=== PATIENT | female | born 1970 | race Two or more races ===

== ENCOUNTER 2024-07-22 15:13 | Emergency (ER) | payer MEDICAID, SELFPAY ==
[2024-07-22 15:15] VITALS: BP 141/83; PULSE 81; RESP 16; TEMP 36.9; O2SAT 98; BMI 43.4
--- NOTE | 2024-07-22 15:24 | EKG_ITS ---
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
--- NOTE | 2024-07-22 15:27 | PD.EDRME ---
Rapid Medical Screening Exam RME Arrival date/time: 07/22/24 15:13 54-year-old female presents emergency department today stating she has upper abdominal pain patient does report history of cholecystectomy Chief Complaint: Abdominal Pain Vital signs: Vital Signs Temperature 98.5 F 07/22/24 15:15 Pulse Rate 81 07/22/24 15:15 Respiratory Rate 16 07/22/24 15:15 Blood Pressure 141/83 H 07/22/24 15:15 Pulse Oximetry (%) 98 07/22/24 15:15 Oxygen Delivery Method Room Air 07/22/24 15:15
--- NOTE | 2024-07-22 15:50 | XR_ITS ---
Examination: CT abdomen with intravenous contrast CT pelvis with intravenous contrast 2-D coronal reconstructions 2-D sagittal reconstructions Date and time of exam:July 22, 2024 at 1734 hrs. Comparison August 27, 2018 Indications: Severe upper abdominal pain epigastric pain nausea today. CTDI: vol (mGy) 17.5 DLP: (mGycm) 1063 Technique: Multiple axial sections of the abdomen and pelvis have been obtained. 64 slice high-resolution scanner used. 3 mm axial sections have been obtained, post intravenous injection 60 cc [id number] 2-D sagittal, coronal reconstructions obtained. Low dose protocols were performed. One or more of the following dose reduction techniques were used; automated exposure control, adjustment of the mA and/or KV according to patient size, use of iterative reconstruction technique. Findings: Mild enlargement cardiac contour, mild vascular congestion Hepatomegaly 23 cm Cirrhosis, liver nodular in contour, no focal liver lesions Absent gallbladder, no biliary tract dilatation No pancreatic mass No renal or ureteral calculi, no hydronephrosis Multiple fluid distended small bowel loops with mild wall thickening Abdominal aorta is not enlarged No pericecal inflammatory change No diverticulitis Atrophic anteverted uterus with intrauterine device satisfactory position No bladder mass or bladder calculi Moderate osteopenia Impression: Significant hepatomegaly Cirrhosis, no focal liver lesions Multiple fluid distended small bowel loops with mild wall wall thickening, differential would include enteritis such as Crohn's disease, hepatic enteropathy, clinical correlation advised
[2024-07-22 16:05] LABS: Collection Type, Urine Clean Catch
[2024-07-22 16:10] LABS: Basophils % (Auto) 0 % (0-2.5); Eosinophils # (Auto) 0.1 Thou/mm3 (0.0-0.5); Eosinophils % (Auto) 1 % (0-10); Hematocrit 41.3 % (36.0-46.0); Hemoglobin 12.8 g/dL (12.0-16.0); Immature Granulocytes % (Auto) 0 % (0-0); Immature Granulocytes Auto 0.01 Thou/mm3 (0.00-0.00); Lymphocytes # (Auto) 1.1 Thou/mm3 (1.0-4.8); Lymphocytes % (Auto) 12 % (10-50); Mean Corpuscular Hemoglobin 23.1 pg (25.0-35.0); Mean Corpuscular Volume 75 fL (80-100); Monocytes # (Auto) 0.4 Thou/mm3 (0.0-0.8); Monocytes % (Auto) 5 % (0-12); Neutrophils # (Auto) 7.1 Thou/mm3 (1.8-7.7); Neutrophils % (Auto) 82 % (37-80); Nucleated Red Blood Cell % 0 /100 WBC (0); Platelet Count 232 Thou/mm3 (140-440); RDW Standard Deviation 42.4 fL (36.4-46.3); Red Blood Count 5.54 Miln/mm3 (4.00-5.20); White Blood Count 8.7 Thou/mm3 (3.6-11.0)
[2024-07-22 16:17] LABS: Bilirubin,Urine Negative (Negative); Blood,Urine Negative (Negative); Clarity,Urine Clear (Clear/Hazy); Color,Urine Lt-Yellow (Lt Yel-Yel); Glucose, Urine 4+ (Negative); Ketones,Urine Negative (Negative); Leukocyte Esterase,Urine Negative (Negative); Nitrite,Urine Negative (Negative); Protein,Urine Negative (Neg - Trace); RBC,Urine 2 /hpf (0-3); Specific Gravity,Urine 1.029 (1.001-1.035); Squamous Epithelial Cell,Urine < 1 /hpf (0-5); Urobilinogen,Urine Negative mg/dL (0.0-1.0); WBC,Urine < 1 /hpf (0-5)
[2024-07-22 16:26] LABS: Partial Thromboplastin Time 27.3 Seconds (22.0-36.0); Prothrombin Time 11.2 Seconds (9.0-12.2)
[2024-07-22 16:30] LABS: HCG Qualitative,Urine Negative
[2024-07-22] MEDS: PANTOPRAZOLE INJ 40 MG VIAL IV (16:30)
[2024-07-22] MEDS: FAMOTIDINE INJ 10 MG/ML VIAL 2 ML 20 MG IVP (16:31)
[2024-07-22] MEDS: ONDANSETRON INJ 2 MG/ML INJ 2 ML 4 MG IV (16:31)
[2024-07-22 16:36] LABS: Alanine Aminotransferase 50 U/L (10-49); Albumin, Serum 4.8 gm/dL (3.5-5.0); Albumin/Globulin Ratio 1.6 (1.2-2.2); Alkaline Phosphatase 99 U/L (46-116); Amylase 134 U/L (30-118); Anion Gap 7 (7-16); Aspartate Amino Transferase 32 U/L (0-34); BUN/Creatinine Ratio 21 Ratio (12-20); Bilirubin,Total 0.5 mg/dL (0.3-1.2); Blood Urea Nitrogen 17 mg/dL (9-23); Calcium 9.4 mg/dL (8.3-10.6); Calcium (Corrected) 9.4 mg/dL (8.5-10.1); Carbon Dioxide 28.1 mMol/L (20.0-31.0); Chloride 101 mMol/L (98-107); Creatinine (Component) 0.8 mg/dL (0.6-1.3); Estimated Creatinine Clearance 99.9 mL/min (>60); Glucose 176 mg/dL (74-106); Lipase 68 U/L (12-53); Magnesium 2.1 mg/dL (1.6-2.6); Osmolality,Calculated 277 (275-295); Potassium 3.9 mMol/L (3.4-5.1); Sodium 136 mMol/L (136-145); Total Protein 7.8 gm/dL (5.7-8.2); Troponin I < 0.002 ng/mL (0.0-0.045); eGFR > 60 See Note
--- NOTE | 2024-07-22 17:39 | EDNOTE_ITS ---
ED Abdominal Pain RME/HPI General Chief Complaint: Abdominal Pain Stated complaint: EPIGASTRIC PAIN Time seen by provider: 07/22/24 15:47 Arrival date/time: 07/22/24 15:13 RME / HPI RME / HPI narrative: 07/22/24 15:13 54-year-old female presents emergency department today stating she has upper abdominal pain patient does report history of cholecystectomy This section includes all my notes and documentations, including HPI, PE, and ED course. Shree Cantu MD HPI: 54-year-old female here with about a week history of epigastric tenderness with nausea. Had cholecystectomy in the past. Decreased oral intake due to her symptoms. No fever or chills. No urinary symptoms. No diarrhea or constipation. No other complaints. ROS: All negative except as documented in HPI. Physical Exam: General: Alert and oriented. No acute distress when remaining still. Eyes: Conjunctivae and lids clear. ENT: No nasal congestion. Neck: Supple. Heart: RRR. Lungs: No respiratory distress. Good air movement. No rhonchi, wheezing, rales. Abdomen: Soft epigastric tenderness. Normal bowel sounds. No distension. No rebound or guarding. Back: No CVA tenderness. Skin: Warm and dry. Neuro: Alert and oriented X 3. I ordered Zofran and famotidine and Protonix diagnostic tests. At 6 PM on 07/22/2024, the care of the patient was transferred to Dr. DELATORRE. Shree Cantu MD Related Data Previous Rx's ?Medication ?Instructions ?Recorded albuterol sulfate 90 mcg/actuation 2 puff inhalation Q4H PRN 04/20/18 aerosol inhaler (Proventil HFA) shortness of breath or wheezing #8.5 grams aluminum-mag hydroxide-simethicone 10 ml PO Q6H PRN indigestion #355 05/19/19 200 mg-200 mg-20 mg/5 mL oral susp mL (Maalox Advanced) omeprazole 20 mg capsule,delayed 20 mg PO QDAY #30 caps 05/19/19 release hydrocodone 5 mg-acetaminophen 325 1 tab PO BID PRN pain #8 tabs 10/18/22 mg tablet ibuprofen 800 mg tablet 800 mg PO TID PRN pain #30 tabs 10/18/22 cyclobenzaprine 5 mg tablet 5 mg PO Q8H #30 tabs 05/25/23 gabapentin 300 mg capsule 300 mg PO Q8H #30 caps 05/25/23 sucralfate 100 mg/mL oral 10 ml PO TID #200 mL 07/22/24 suspension (Carafate) Allergies Allergy/AdvReac Type Severity Reaction Status Date / Time No Known Allergies Allergy Verified 12/04/21 12:16 Course Quality Measures none Orders Category Date Time Status CT Screening NOW Care 07/22/24 15:50 Completed EKG (ED ONLY) *Do not use* NOW Care 07/22/24 15:24 Completed Saline [Insert IV] NOW Care 07/22/24 15:[address] abdomen pelvis w con Stat Exams 07/22/24 15:50 Completed EKG (ED Only) Stat Exams 07/22/24 15:24 Draft Amylase Stat Lab 07/22/24 15:54 Completed CBC Stat Lab 07/22/24 15:54 Completed Comprehensive Metabolic Panel Stat Lab 07/22/24 15:54 Completed Drug Screen,Urine Stat Lab 07/22/24 15:58 Completed HCG Qualitative,Urine Stat Lab 07/22/24 15:58 Completed Lipase Stat Lab 07/22/24 15:54 Completed Magnesium Stat Lab 07/22/24 15:54 Completed Partial Thromboplastin Time Stat Lab 07/22/24 15:54 Completed Prothrombin Time with INR Stat Lab 07/22/24 15:54 Completed Troponin I Stat Lab 07/22/24 15:54 Completed Urinalysis Stat Lab 07/22/24 15:58 Completed Famotidine Inj [Pepcid Inj] Med 07/22/24 15:50 Discontinued 20 mg IVP X1 ONE Lidocaine 2% Viscous [Xylocaine 2% Viscous] Med 07/22/24 19:34 Discontinued 15 ml PO X1 ONE Ondansetron Inj [Zofran Inj] Med 07/22/24 15:50 Discontinued 4 mg IV X1 ONE Pantoprazole Inj [Protonix Inj] Med 07/22/24 15:50 Discontinued 40 mg IV X1 ONE Sucralfate Susp [Carafate Susp] Med 07/22/24 19:34 Discontinued 1 gm PO X1 ONE mg Hyd/Al Hyd/Reed Susp [Maalox Susp] Med 07/22/24 19:34 Discontinued 30 ml PO X1 ONE Vital Signs Vital signs: Vital Signs Temperature 98.5 F 07/22/24 15:15 Pulse Rate 81 07/22/24 15:15 Respiratory Rate 16 07/22/24 15:15 Blood Pressure 141/83 H 07/22/24 15:15 Pulse Oximetry (%) 98 07/22/24 15:15 Oxygen Delivery Method Room Air 07/22/24 15:15 Abdominal Pain MDM Patient data External records reviewed:: [facility] previous records Clinical information provided by:: patient and spouse Social determinants that could affect healthcare access:: none Patient has the following chronic illnesses:: None How is presenting disease/condition affected by chronic disease/condition?: no chronic disease Evaluation data The following diagnostics were reviewed and interpreted by me:: other (specify) (Diagnostic test results pending) Lab and/or radiology exams considered but not ordered:: None Interpretation Summary: Diagnostic test results pending Medications / Prescriptions Medications or Prescriptions considered but not ordered:: None Medication administrations:: Medication Administration History Discontinued Medications Al Hydrox/Mg Hydrox/Simethicone (Mg Hyd/Al Hyd/Reed (Maalox Reg) Susp 30 Ml Udc) 30 ml PO X1 ONE Stop: 07/22/24 19:35 Last Admin: 07/22/24 20:14 Dose: 30 ml Documented By: CRISTA Famotidine (Famotidine Inj 10 Mg/Ml Vial 2 Ml) 20 mg IVP X1 ONE Stop: 07/22/24 15:51 Last Admin: 07/22/24 16:31 Dose: 20 mg Documented By: TREVA Lidocaine HCl (Lidocaine Viscous 2% 15 Ml Udc) 15 ml PO X1 ONE Stop: 07/22/24 19:35 Last Admin: 07/22/24 20:15 Dose: 15 ml Documented By: CRISTA Ondansetron HCl (Ondansetron Inj 2 Mg/Ml Inj 2 Ml) 4 mg IV X1 ONE; Protocol Stop: 07/22/24 15:51 Last Admin: 07/22/24 16:31 Dose: 4 mg Documented By: TREVA Pantoprazole Sodium (Pantoprazole Inj 40 Mg Vial) 40 mg IV X1 ONE Stop: 07/22/24 15:51 Last Admin: 07/22/24 16:30 Dose: 40 mg Documented By: TREVA Sucralfate (Sucralfate Susp 1 Gm/10 Ml Udc) 1 gm PO X1 ONE Stop: 07/22/24 19:35 Last Admin: 07/22/24 20:15 Dose: 1 gm Documented By: CB Zofran and famotidine and Protonix Consultations Consultation(s) initiated? (list below): No Diagnosis Differential diagnosis abdominal pain: acute appendicitis, calculus of kidney, constipation, diverticulitis, endometriosis, gastroenteritis, pancreatitis and small bowel obstruction Most likely diagnosis given after review of the tests above:: Diagnostic test results pending Admission Indicated Admission indicated?: not indicated Explain why admission is indicated or not indicated:: Diagnostic test results pending Admission Request Was there a request for admission?: No Disposition Plan Disposition Plan: other (specify) (Transferred care to Dr. Delatorre) Discharge Plan Plan Patient Disposition: HOME (Self Care) Prescriptions/Referrals Prescriptions/Med Rec: New sucralfate [Carafate] 100 mg/mL suspension 10 ml PO TID Qty: 200 0RF No Action albuterol sulfate [Proventil HFA] 90 mcg/actuation HFA aerosol inhaler 2 puff INH Q4H PRN (Reason: shortness of breath or wheezing) Qty: 8.5 0RF alum-mag hydroxide-simeth [Maalox Advanced] 200-200-20 mg/5 mL suspension 10 ml PO Q6H PRN (Reason: indigestion) Qty: 355 0RF omeprazole 20 mg capsule,delayed release(DR/EC) 20 mg PO QDAY Qty: 30 0RF ibuprofen 800 mg tablet 800 mg PO TID PRN (Reason: pain) Qty: 30 0RF hydrocodone-acetaminophen 5-325 mg tablet 1 tab PO BID MDD 10 PRN (Reason: pain) Qty: 8 0RF gabapentin 300 mg capsule 300 mg PO Q8H Qty: 30 0RF cyclobenzaprine 5 mg tablet 5 mg PO Q8H Qty: 30 0RF Referrals: Elian Laguna MD [Primary Care Provider] - In 1 week Problem List Clinical Impression: Gastritis, Enlarged liver Patient/Caregiver Discharge Instructions Education Materials: Nonalcoholic Fatty Liver ..., ED Gastritis (Adult) Print Language: Irish Stand Alone Forms: Zaina Award Info., Patient Portal Info Letter
[2024-07-22 17:51] LABS: Amphetamine/Methamp Scrn,U Negative (Negative); Barbiturate Screen,Urine Negative (Negative); Benzodiazepines Screen,Urine Negative (Negative); Benzoylecgonine Screen, Ur Negative (Negative); Fentanyl Screen,Urine Negative (Negative); Opiate Screen,Urine Negative (Negative); THC Screen,Urine Negative (Negative)
[2024-07-22 18:19] VITALS: BP 116/81; PULSE 75; RESP 16; TEMP 36.8; O2SAT 95
--- NOTE | 2024-07-22 19:06 | PD.EDADDENDU ---
Emergency Room Addendum Addendum Narrative: 1800: Care assumed from Dr. Cantu, the previous shift emergency physician. Past medical, surgical, social and family history reviewed. Vitals and home medications reviewed. I will assume the care of the patient at this time, pending remainder of diagnostics tests and final disposition. Please refer to the emergency department record for history and examination from initial visit.? Physical exam by me shows patient under no acute distress at this time. 1940: Patient remains clinically stable throughout the emergency department visit. Re-assessment at the time of disposition demonstrates that the patient is in no acute distress. We reviewed all the results, analysis, and treatment plans. Patient is amenable to discharge. Strict return precautions were outlined. Patient was discharged in stable condition. Diagnosis: Gastritis, Enlarged liver RADIOLOGY Procedure(s): CT abdomen pelvis w con Accession Number(s): [id number] cc: Elian Laguna MD; Shree Cantu MD; James Jones MD~ Examination: CT abdomen with intravenous contrast CT pelvis with intravenous contrast 2-D coronal reconstructions 2-D sagittal reconstructions Date and time of exam:July 22, 2024 at 1734 hrs. Comparison August 27, 2018 Indications: Severe upper abdominal pain epigastric pain nausea today. CTDI: vol (mGy) 17.5 DLP: (mGycm) 1063 Technique: Multiple axial sections of the abdomen and pelvis have been obtained. 64 slice high-resolution scanner used. 3 mm axial sections have been obtained, post intravenous injection 60 cc [id number] 2-D sagittal, coronal reconstructions obtained. Low dose protocols were performed. One or more of the following dose reduction techniques were used; automated exposure control, adjustment of the mA and/or KV according to patient size, use of iterative reconstruction technique. Findings: Mild enlargement cardiac contour, mild vascular congestion Hepatomegaly 23 cm Cirrhosis, liver nodular in contour, no focal liver lesions Absent gallbladder, no biliary tract dilatation No pancreatic mass No renal or ureteral calculi, no hydronephrosis Multiple fluid distended small bowel loops with mild wall thickening Abdominal aorta is not enlarged No pericecal inflammatory change No diverticulitis Atrophic anteverted uterus with intrauterine device satisfactory position No bladder mass or bladder calculi Moderate osteopenia Impression: Significant hepatomegaly Cirrhosis, no focal liver lesions Multiple fluid distended small bowel loops with mild wall wall thickening, differential would include enteritis such as Crohn's disease, hepatic enteropathy, clinical correlation advised Dictated By: James Jones MD
[2024-07-22 19:07] VITALS: BP 130/89; PULSE 84; RESP 18; TEMP 36.9; O2SAT 96
[2024-07-22 19:58] VITALS: BP 132/93; PULSE 74; RESP 18; TEMP 36.7; O2SAT 99
[2024-07-22] MEDS: MG HYD/AL HYD/SIME (Maalox Reg) SUSP 30 ML UDC PO (20:14)
[2024-07-22] MEDS: SUCRALFATE SUSP 1 GM/10 ML UDC PO (20:15)
[2024-07-22] MEDS: LIDOCAINE VISCOUS 2% 15 ML UDC PO (20:15)
[2024-07-22 20:25] VITALS: BP 128/86; PULSE 70; RESP 16; TEMP 36.7; O2SAT 98
== END 2024-07-22 20:26 | disposition home or self-care (01) ==
PROVIDERS: Nurse Practitioner Primary Care; Emergency Provider Emergency Medicine; PCP Family Medicine
DX: K29.70 Gastritis, unspecified, without bleeding (principal)
CPT/HCPCS: 36415; 74177; 80053; 80307; 81001; 81025; 82150; 83690; 83735; 84484; 85025; 85610; 85730; 93005; 96374; 96375; 99285; A4649; J2405; J2470; J3490; Q9967; A9270

== ENCOUNTER → 2024-11-02 | Outpatient (CLI) | payer MEDICAID, SELFPAY ==
--- NOTE | 2024-11-02 12:33 | XR_ITS ---
Examination: PA lateral chest 2 views TECHNIQUE: Upright PA lateral chest 2 views Exam date and time: November 02, 2024 1324 hours INDICATIONS: Tuberculosis screening. FINDINGS: Normal heart size Lungs are clear. Moderate osteopenia IMPRESSION: No active disease No radiographic findings of tuberculosis
== END | disposition home or self-care (01) ==
PROVIDERS: PCP Physician Assistant; Referring Provider Physician Assistant; Visit Provider Physician Assistant
DX: Z11.1 Encounter for screening for respiratory tuberculosis (principal)
CPT/HCPCS: 71046

== ENCOUNTER 2024-12-13 06:29 | Emergency (ER) | payer MEDICAID, SELFPAY ==
[2024-12-13 06:31] VITALS: BMI 41.1
[2024-12-13 06:32] VITALS: BP 149/88; PULSE 77; RESP 19; TEMP 37.1; O2SAT 96
--- NOTE | 2024-12-13 06:50 | XR_ITS ---
Examination: PA lateral chest 2 views TECHNIQUE: Upright PA and lateral chest 2 views Exam date time: December 13, 2024 0707 hours INDICATIONS: Fever coughing beginning 2 weeks ago. FINDINGS: Normal heart size Accentuation of basilar bronchovascular markings. No lobar pneumonia. Moderate osteopenia IMPRESSION: Basilar bronchitis pattern
--- NOTE | 2024-12-13 06:52 | EDNOTE_ITS ---
Upper Respiratory Inf. RME/HPI General Chief Complaint: Flu Like Symptoms Stated Complaint: MY LUNGS HURTS, FEVER, CHILL, FEEL TIRED, ABD PAIN Time Seen by Provider: 12/13/24 06:33 Arrival date/time: 12/13/24 06:29 This is a 54-year-old female that comes in with complaints of fever and chills for the past 2 weeks. Patient states she feels fatigued. Patient recently had influenza approximately a month ago. Patient also complains of dysuria. Patient states she started coughing 2 days ago as well. History of diabetes, high blood pressure. Related Data Previous Rx's ?Medication ?Instructions ?Recorded albuterol sulfate 90 mcg/actuation 2 puff inhalation Q 4H PRN 04/20/18 aerosol inhaler (Proventil HFA) shortness of breath or wheezing #8.5 grams aluminum-mag hydroxide-simethicone 10 ml PO Q6H PRN in digestion #355 05/19/19 200 mg-200 mg-20 mg/5 mL oral susp mL (Maalox Advanced) omeprazole 20 mg capsule,delayed 20 mg PO QDAY #30 cap s 05/19/19 release hydrocodone 5 mg-acetaminophen 325 1 tab PO BID PRN pa in #8 tabs 10/18/22 mg tablet ibuprofen 800 mg tablet 800 mg PO TID PRN pain #30 t abs 10/18/22 cyclobenzaprine 5 mg tablet 5 mg PO Q8H #30 tabs 05/25 gabapentin 300 mg capsule 300 mg PO Q8H #30 caps 05/25 sucralfate 100 mg/mL oral 10 ml PO TID #200 mL 4 suspension (Carafate) azithromycin 250 mg tablet See Rx Instructions PO .COM PLEX #6 12/13/24 tabs ibuprofen 800 mg tablet 800 mg PO Q6H PRN pain #10 t abs 12/13/24 promethazine-DM 6.25 mg-15 mg/5 mL 5 ml PO Q6H PRN cou gh #120 mL 12/13/24 oral syrup Allergies Allergy/AdvReac Type Severity Reaction Status Date / Time No Known Allergies Allergy Verified 12/04/21 12:16 Course Orders Category Date Time Status Bedside COVID-19 Antigen Test NOW Care 12/13/24 06:50 Active Bedside Influenza A&B Antigen Test NOW Care 12/13/24 06:50 Completed XR chest 2V Stat Exams 12/13/24 06:50 Completed HCG Qualitative,Urine Stat Lab 12/13/24 08:23 Completed Urinalysis, C/S if Indicated Stat Lab 12/13/24 08:23 Completed Vital Signs Vital signs: Vital Signs Temperature 98.8 F 12/13/24 06:32 Pulse Rate 77 12/13/24 06:32 Respiratory Rate 19 12/13/24 06:32 Blood Pressure 149/88 H 12/13/24 06:32 Pulse Oximetry (%) 96 12/13/24 06:32 Oxygen Delivery Method Room Air 12/13/24 06:32 Upper Respiratory Infection MDM Narrative MDM Narrative:: Chest x ray: FINDINGS: Normal heart size Accentuation of basilar bronchovascular markings. No lobar pneumonia. Moderate osteopenia IMPRESSION: Basilar bronchitis pattern COVID and influenza negative. Discharge Plan Plan Patient Disposition: HOME (Self Care) Patient condition on transfer: Stable Prescriptions/Referrals Prescriptions/Med Rec: New azithromycin 250 mg tablet See Rx Instructions .ROUTE .COMPLEX Qty: 6 0RF Rx Instructions: For 250 mg dose pack: take 500 mg today (day 1), then 250 mg for 4 days (days 2-5) ibuprofen 800 mg tablet 800 mg PO Q6H PRN (Reason: pain) Qty: 10 0RF promethazine-DM 6.25-15 mg/5 mL syrup 5 ml PO Q6H PRN (Reason: cough) Qty: 120 0RF No Action albuterol sulfate [Proventil HFA] 90 mcg/actuation HFA aerosol inhaler 2 puff INH Q4H PRN (Reason: shortness of breath or wheezing) Qty: 8.5 0RF alum-mag hydroxide-simeth [Maalox Advanced] 200-200-20 mg/5 mL suspension 10 ml PO Q6H PRN (Reason: indigestion) Qty: 355 0RF omeprazole 20 mg capsule,delayed release(DR/EC) 20 mg PO QDAY Qty: 30 0RF ibuprofen 800 mg tablet 800 mg PO TID PRN (Reason: pain) Qty: 30 0RF hydrocodone-acetaminophen 5-325 mg tablet 1 tab PO BID MDD 10 PRN (Reason: pain) Qty: 8 0RF sucralfate [Carafate] 100 mg/mL suspension 10 ml PO TID Qty: 200 0RF gabapentin 300 mg capsule 300 mg PO Q8H Qty: 30 0RF cyclobenzaprine 5 mg tablet 5 mg PO Q8H Qty: 30 0RF Referrals: Adriel Dobson [Primary Care Provider] - In 1 week Problem List Clinical Impression: Bronchitis, Cough Patient/Caregiver Discharge Instructions Discharge Activity: activity as tolerated Education Materials: ED Upper Resp Infec Abx Tx Additional Instructions: Erickson un tyson con kyle medico de cabecera en las proximas 24-48 horas. Regrese a la emanuel de emergencias si hay evidencia de que los signos o sintomas empeoran. Print Language: Slovenian Stand Alone Forms: Zaina Award Info., Patient Portal Info Letter PA/EMERGENCY PREPAREDNESS COORDINATOR Supervising Physician PA/EMERGENCY PREPAREDNESS COORDINATOR Supervising Physician: almaz
[2024-12-13 08:39] LABS: Collection Type, Urine Voided
[2024-12-13 08:45] LABS: Bilirubin,Urine Negative (Negative); Blood,Urine Negative (Negative); Clarity,Urine Clear (Clear/Hazy); Color,Urine Lt-Yellow (Lt Yel-Yel); Culture Indicated,Urine Not Indicated; Glucose, Urine 4+ (Negative); HCG Qualitative,Urine Negative; Ketones,Urine Negative (Negative); Leukocyte Esterase,Urine Positive (Negative); Nitrite,Urine Negative (Negative); PH,Urine 5.5 (5.0-7.0); Protein,Urine Negative (Neg - Trace); RBC,Urine 1 /hpf (0-3); Specific Gravity,Urine 1.011 (1.001-1.035); Squamous Epithelial Cell,Urine 2 /hpf (0-5); Urobilinogen,Urine Negative mg/dL (0.0-1.0); WBC,Urine 3 /hpf (0-5)
== END 2024-12-13 10:35 | disposition home or self-care (01) ==
PROVIDERS: Nurse Practitioner Family; Emergency Provider Emergency Medicine; PCP Physician Assistant
DX: J40 Bronchitis, not specified as acute or chronic (principal); E11.9 Type 2 diabetes mellitus without complications
CPT/HCPCS: 71046; 81001; 81025; 87400; 87811; 99283

== ENCOUNTER 2024-12-22 10:28 | Emergency (ER) | payer MEDICAID, SELFPAY ==
[2024-12-22 10:50] VITALS: BP 142/81; PULSE 71; RESP 16; TEMP 37; O2SAT 96; BMI 39.8
--- NOTE | 2024-12-22 11:14 | EKG_ITS ---
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
--- NOTE | 2024-12-22 11:14 | XR_ITS ---
Examination: PA lateral chest 2 views TECHNIQUE: Upright PA lateral chest 2 views Date and time: December 22, 2024 1309 hours Comparison December 13, 2024 INDICATIONS: Chest pain this week. FINDINGS: Normal heart size Mild accentuation bronchovascular markings. No lobar pneumonia. Prominent osteopenia IMPRESSION: Mild basilar bronchitis pattern
--- NOTE | 2024-12-22 11:15 | EDRME_ITS ---
Rapid Medical Screening Exam [facility] Arrival date/time: 12/22/24 10:28 This is a 54-year-old female comes to the emergency room with complaints of chest pain and shortness of breath. Patient was seen here about a week ago with similar symptoms. Patient was diagnosed with bronchitis. Patient denies fever, nausea, vomiting, diarrhea. Patient reports history of diabetes and high blood pressure. I have greeted and performed a focused initial assessment of this patient. Initial appropriate labs ordered at this time. A comprehensive ED assessment and evaluation of the patient and analysis of all test and completion of medical decision making process will be conducted by additional ED provider. Chief Complaint: Chest Pain Time Seen by Provider: 12/22/24 10:29 Vital signs: Vital Signs Temperature 98.6 F 12/22/24 10:50 Pulse Rate 71 12/22/24 10:50 Respiratory Rate 16 12/22/24 10:50 Blood Pressure 142/81 H 12/22/24 10:50 Pulse Oximetry (%) 96 12/22/24 10:50 Oxygen Delivery Method Room Air 12/22/24 10:50
[2024-12-22 12:21] LABS: Basophils % (Auto) 0 % (0-2.5); Eosinophils # (Auto) 0.1 Thou/mm3 (0.0-0.5); Eosinophils % (Auto) 2 % (0-10); Hematocrit 36.8 % (36.0-46.0); Hemoglobin 12.3 g/dL (12.0-16.0); Immature Granulocytes % (Auto) 0 % (0-0); Immature Granulocytes Auto 0.01 Thou/mm3 (0.00-0.00); Lymphocytes # (Auto) 1.5 Thou/mm3 (1.0-4.8); Lymphocytes % (Auto) 27 % (10-50); Mean Corpuscular HGB Conc 33.4 g/dl (31.0-37.0); Mean Corpuscular Volume 72 fL (80-100); Monocytes # (Auto) 0.4 Thou/mm3 (0.0-0.8); Monocytes % (Auto) 7 % (0-12); Neutrophils # (Auto) 3.6 Thou/mm3 (1.8-7.7); Neutrophils % (Auto) 63 % (37-80); Nucleated Red Blood Cell % 0 /100 WBC (0); Platelet Count 271 Thou/mm3 (140-440); RDW Standard Deviation 43.8 fL (36.4-46.3); Red Blood Count 5.12 Miln/mm3 (4.00-5.20); White Blood Count 5.6 Thou/mm3 (3.6-11.0)
[2024-12-22 12:44] LABS: Alanine Aminotransferase 24 U/L (10-49); Albumin, Serum 4.3 gm/dL (3.5-5.0); Albumin/Globulin Ratio 1.4 (1.2-2.2); Alkaline Phosphatase 71 U/L (46-116); Anion Gap 9 (7-16); Aspartate Amino Transferase 33 U/L (0-34); BUN/Creatinine Ratio 11 Ratio (12-20); Bilirubin,Total 0.7 mg/dL (0.3-1.2); Blood Urea Nitrogen 8 mg/dL (9-23); Calcium 8.7 mg/dL (8.3-10.6); Calcium (Corrected) 8.7 mg/dL (8.5-10.1); Carbon Dioxide 28.1 mMol/L (20.0-31.0); Chloride 105 mMol/L (98-107); Creatinine (Component) 0.7 mg/dL (0.6-1.3); Estimated Creatinine Clearance 108.7 mL/min (>60); Glucose 94 mg/dL (74-106); Osmolality,Calculated 281 (275-295); Potassium 3.9 mMol/L (3.4-5.1); Sodium 142 mMol/L (136-145); Total Protein 7.3 gm/dL (5.7-8.2); Troponin I < 0.002 ng/mL (0.0-0.045); eGFR > 60 See Note
[2024-12-22 12:45] LABS: B-Type Natriuretic Peptide 32 pg/mL (0-100)
[2024-12-22 15:20] VITALS: BP 143/83; PULSE 80; RESP 18; TEMP 36.7; O2SAT 98
--- NOTE | 2024-12-22 16:14 | PD.EDCHEST ---
ED Chest Pain RME/HPI General Chief Complaint: Chest Pain Stated Complaint: CHEST PAIN Time Seen by Provider: 12/22/24 10:29 Arrival date/time: 12/22/24 10:28 RME / HPI RME / HPI narrative: 12/22/24 10:28 This is a 54-year-old female comes to the emergency room with complaints of chest pain and shortness of breath. Patient was seen here about a week ago with similar symptoms. Patient was diagnosed with bronchitis. Patient denies fever, nausea, vomiting, diarrhea. Patient reports history of diabetes and high blood pressure. I have greeted and performed a focused initial assessment of this patient. Initial appropriate labs ordered at this time. A comprehensive ED assessment and evaluation of the patient and analysis of all test and completion of medical decision making process will be conducted by additional ED provider. DR. DELATORRE MAIN ED EVALUATION: 54 year old female presents to the Emergency Department with complaint of chest pain with associated mild shortness of breath. She was recently seen here for bronchitis last week and uses an inhaler at home. Denies any heart problems. No leg edema or pain. Patient denies any tobacco, alcohol, or substance use. PMHx: Hypertension, hypercholesterolemia, asthma, and diabetes type 2. Social Hx: No tobacco, alcohol, or substance use. Related Data Previous Rx's ?Medication ?Instructions ?Recorded albuterol sulfate 90 mcg/actuation 2 puff inhalation Q4H PRN 04/20/18 aerosol inhaler (Proventil HFA) shortness of breath or wheezing #8.5 grams aluminum-mag hydroxide-simethicone 10 ml PO Q6H PRN indigestion #355 05/19/19 200 mg-200 mg-20 mg/5 mL oral susp mL (Maalox Advanced) omeprazole 20 mg capsule,delayed 20 mg PO QDAY #30 caps 05/19/19 release hydrocodone 5 mg-acetaminophen 325 1 tab PO BID PRN pain #8 tabs 10/18/22 mg tablet ibuprofen 800 mg tablet 800 mg PO TID PRN pain #30 tabs 10/18/22 cyclobenzaprine 5 mg tablet 5 mg PO Q8H #30 tabs 05/25/23 gabapentin 300 mg capsule 300 mg PO Q8H #30 caps 05/25/23 sucralfate 100 mg/mL oral 10 ml PO TID #200 mL 07/22/24 suspension (Carafate) azithromycin 250 mg tablet See Rx Instructions PO .COMPLEX #6 12/13/24 tabs ibuprofen 800 mg tablet 800 mg PO Q6H PRN pain #10 tabs 12/13/24 promethazine-DM 6.25 mg-15 mg/5 mL 5 ml PO Q6H PRN cough #120 mL 12/13/24 oral syrup doxycycline monohydrate 100 mg 100 mg PO BID #14 caps 12/22/24 capsule Allergies Allergy/AdvReac Type Severity Reaction Status Date / Time No Known Allergies Allergy Verified 12/22/24 10:30 Review of Systems Review of Systems Systems Reviewed: All systems reviewed, normal except as documented Past Medical History Past Medical History CARDIAC: Positive Cardiac Disorders, Hypercholesterolemia and Hypertension RESPIRATORY: Positive Asthma and Bronchitis GASTROINTESTINAL: Positive Gastrointestinal Disorders and Obesity REPRODUCTIVE: Positive Previous Pregnancies ENDOCRINE: Positive Endocrine Disorders and Diabetes Mellitus Type 2 Surgical History SURGICAL: Positive Abdominal Surgery and Section Social History SMOKING STATUS: Never smoker SUBSTANCE USE: does not use ALCOHOL: Never ED Exam Narrative Physical exam: GENERAL APPEARANCE: alert and oriented x 4, well-developed, well-nourished, no acute distress VITALS: All vitals were reviewed and the pulse ox is 98% on room air, which is normal according to my interpretation. HEENT: Normocephalic, atraumatic; pupils equal, round, reactive to light; EOMI; mucous membranes pink, moist; oropharynx clear NECK: Supple LUNGS: mild coarse sounds; no wheezes, no rales, no rhonchi HEART: Regular rate, regular rhythm; normal S1, S2; no murmurs ABDOMEN: non distended; normal BS; soft, no tenderness, no guarding, no rebound; no masses, no organomegaly, no hernia BACK: no CVA tenderness EXTREMITIES: atraumatic; no edema NEUROLOGIC: awake; alert and oriented x4; cranial nerves II-XII grossly intact; no focal sensory or motor deficits PSYCHIATRIC: appropriate mood and affect SKIN: warm, dry, normal color; no rashes Course Quality Measures none Orders Category Date Time Status EKG (ED ONLY) *Do not use* NOW Care 12/22/24 11:14 Completed EKG (ED Only) Stat Exams 12/22/24 11:14 Draft XR chest 2V Stat Exams 12/22/24 11:14 Completed BNP [B-Type Natriuretic Peptide] Stat Lab 12/22/24 11:50 Completed CBC Stat Lab 12/22/24 11:50 Completed Comprehensive Metabolic Panel Stat Lab 12/22/24 11:50 Completed Troponin I Stat Lab 12/22/24 11:50 Completed Troponin I Stat Lab 12/22/24 16:15 Ordered Dexamethasone Inj [Decadron Inj] Med 12/22/24 16:15 Discontinued 4 mg PO X1 ONE Doxycycline [Vibramycin] Med 12/22/24 16:15 Discontinued 100 mg PO X1 ONE Vital Signs Vital signs: Vital Signs Temperature 98.6 F 12/22/24 10:50 Pulse Rate 71 12/22/24 10:50 Respiratory Rate 16 12/22/24 10:50 Blood Pressure 142/81 H 12/22/24 10:50 Pulse Oximetry (%) 96 12/22/24 10:50 Oxygen Delivery Method Room Air 12/22/24 10:50 Chest Pain MDM Narrative MDM Narrative:: I, Edna Gamble am scribing for and in the presence of Dr. Delatorre. Patient data External records reviewed:: [facility] previous records (Reviewed last ED visit dated 12/13/24, discharged with the following: Bronchitis) Clinical information provided by:: patient Social determinants that could affect healthcare access:: none Patient has the following chronic illnesses:: Hypertension, hypercholesterolemia, asthma, and diabetes type 2. How is presenting disease/condition affected by chronic disease/condition?: exacerbated by Evaluation data The following diagnostics were reviewed and interpreted by me:: lab results, radiology exam(s) and EKG tracing(s) (EKG#1: EKG at 1119 hours. Interpreted by me: sinus rhythm, rate 70, no acute ischemic changes) Lab and/or radiology exams considered but not ordered:: none Interpretation Summary: Procedure(s): XR chest 2V Accession Number(s): [id number] cc: James Jones MD; NO PRIMARY/FAMILY,PHYSICIAN; Betty Medina NP~ Examination: PA lateral chest 2 views TECHNIQUE: Upright PA lateral chest 2 views Date and time: December 22, 2024 1309 hours Comparison December 13, 2024 INDICATIONS: Chest pain this week. FINDINGS: Normal heart size Mild accentuation bronchovascular markings. No lobar pneumonia. Prominent osteopenia IMPRESSION: Mild basilar bronchitis pattern Dictated By: James Jones MD Medications / Prescriptions Medications or Prescriptions considered but not ordered:: none Medication administrations:: Medication Administration History Discontinued Medications Dexamethasone Sodium Phosphate (Dexamethasone Sod Phos Inj 4 Mg/Ml Vial) 4 mg PO X1 ONE; Protocol Stop: 12/22/24 16:16 Doxycycline Hyclate (Doxycycline 100 Mg Tablet) 100 mg PO X1 ONE Stop: 12/22/24 16:16 see above Consultations Consultation(s) initiated? (list below): No Diagnosis Chest Pain Differential Diagnosis: atypical chest pain, costochondritis, chest pain and other (bronchitis) Most likely diagnosis given after review of the tests above:: Bronchitis Admission Indicated Admission indicated?: not indicated Admission Request Was there a request for admission?: No Disposition Plan Disposition Plan: Discharge Discharge Attestation Discharge Attestation: The patient and all family members were given an opportunity to ask questions and understood the discharge instructions. Discharge instructions specifically effects, indications for sooner follow up or return to the emergency department, and the expected course of current diagnosis. Patient condition: Stable Discharge Plan Plan Patient Disposition: HOME (Self Care) Prescriptions/Referrals Prescriptions/Med Rec: New doxycycline monohydrate 100 mg capsule 100 mg PO BID Qty: 14 0RF No Action albuterol sulfate [Proventil HFA] 90 mcg/actuation HFA aerosol inhaler 2 puff INH Q4H PRN (Reason: shortness of breath or wheezing) Qty: 8.5 0RF alum-mag hydroxide-simeth [Maalox Advanced] 200-200-20 mg/5 mL suspension 10 ml PO Q6H PRN (Reason: indigestion) Qty: 355 0RF omeprazole 20 mg capsule,delayed release(DR/EC) 20 mg PO QDAY Qty: 30 0RF ibuprofen 800 mg tablet 800 mg PO TID PRN (Reason: pain) Qty: 30 0RF hydrocodone-acetaminophen 5-325 mg tablet 1 tab PO BID MDD 10 PRN (Reason: pain) Qty: 8 0RF sucralfate [Carafate] 100 mg/mL suspension 10 ml PO TID Qty: 200 0RF gabapentin 300 mg capsule 300 mg PO Q8H Qty: 30 0RF cyclobenzaprine 5 mg tablet 5 mg PO Q8H Qty: 30 0RF azithromycin 250 mg tablet See Rx Instructions .ROUTE .COMPLEX Qty: 6 0RF Rx Instructions: For 250 mg dose pack: take 500 mg today (day 1), then 250 mg for 4 days (days 2-5) ibuprofen 800 mg tablet 800 mg PO Q6H PRN (Reason: pain) Qty: 10 0RF promethazine-DM 6.25-15 mg/5 mL syrup 5 ml PO Q6H PRN (Reason: cough) Qty: 120 0RF Referrals: No Primary/Family,Physician [Primary Care Provider] - In 1 week Problem List Clinical Impression: Bronchitis Patient/Caregiver Discharge Instructions Education Materials: ED Upper Resp Infec Abx Tx Print Language: Citizen [place] Stand Alone Forms: Zaina Award Info., Patient Portal Info Letter
[2024-12-22] MEDS: DOXYCYCLINE 100 MG TABLET PO (16:57)
[2024-12-22] MEDS: DEXAMETHASONE SOD PHOS INJ 4 MG/ML VIAL PO (16:57)
[2024-12-22 17:01] VITALS: RESP 18; TEMP 36.7; O2SAT 98
[2024-12-22 17:29] LABS: Troponin I < 0.002 ng/mL (0.0-0.045)
== END 2024-12-22 17:02 | disposition home or self-care (01) ==
PROVIDERS: Nurse Practitioner Family; Emergency Provider Emergency Medicine
DX: J40 Bronchitis, not specified as acute or chronic (principal); E11.9 Type 2 diabetes mellitus without complications; I10 Essential (primary) hypertension; E78.00 Pure hypercholesterolemia, unspecified
CPT/HCPCS: 36415; 71046; 80053; 83880; 84484; 85025; 93005; 99283; J1100; A9270

== ENCOUNTER 2025-01-27 07:40 | Emergency (ER) | payer MEDICAID, SELFPAY ==
[2025-01-27 07:41] VITALS: BMI 39.9
--- NOTE | 2025-01-27 07:56 | XR_ITS ---
Examination: CT brain head without contrast. 2-D sagittal coronal reconstructions Date and time of exam:January 27, 2025 0823 hours INDICATIONS: Onset left-sided head pain blurred vision beginning 4 days ago CTDI: vol (mGy):57.8 DLP: (mGycm):1133 Technique: Multiple CT axial sections of the brain have been obtained, 5 mm slice thickness. Contrast has not been administered. 2-D sagittal, coronal reconstructions have been obtained Low dose protocols were performed. One or more of the following dose reduction techniques were used; automated exposure control, adjustment of the mA and/or KV according to patient size, use of iterative reconstruction technique. Findings: No significant ventricular enlargement. Intra-axial or extra-axial hemorrhage density is not seen. No mass effect or midline shift Basal cisterns are not remarkable. Fourth ventricle is midline. Cranial vault intact. Impression: Negative for acute hemorrhage, mass effect or midline shift As clinically warranted, brain MRI follow-up would best assess for demyelinating disease, acute ischemic change
[2025-01-27 07:59] VITALS: BP 153/92; PULSE 76; RESP 16; TEMP 36.8; O2SAT 97
[2025-01-27 08:21] LABS: Basophils % (Auto) 1 % (0-2.5); Eosinophils # (Auto) 0.2 Thou/mm3 (0.0-0.5); Eosinophils % (Auto) 5 % (0-10); Hematocrit 38.9 % (36.0-46.0); Hemoglobin 12.9 g/dL (12.0-16.0); Immature Granulocytes % (Auto) 0 % (0-0); Immature Granulocytes Auto 0.01 Thou/mm3 (0.00-0.00); Lymphocytes # (Auto) 1.3 Thou/mm3 (1.0-4.8); Lymphocytes % (Auto) 30 % (10-50); Mean Corpuscular HGB Conc 33.2 g/dl (31.0-37.0); Mean Corpuscular Hemoglobin 24.8 pg (25.0-35.0); Mean Corpuscular Volume 75 fL (80-100); Monocytes # (Auto) 0.3 Thou/mm3 (0.0-0.8); Monocytes % (Auto) 6 % (0-12); Neutrophils # (Auto) 2.4 Thou/mm3 (1.8-7.7); Neutrophils % (Auto) 58 % (37-80); Nucleated Red Blood Cell % 0 /100 WBC (0); Platelet Count 206 Thou/mm3 (140-440); RDW Standard Deviation 43.3 fL (36.4-46.3); White Blood Count 4.1 Thou/mm3 (3.6-11.0)
[2025-01-27 08:32] LABS: Alanine Aminotransferase 27 U/L (10-49); Albumin, Serum 4.2 gm/dL (3.5-5.0); Albumin/Globulin Ratio 1.6 (1.2-2.2); Alkaline Phosphatase 82 U/L (46-116); Anion Gap 7 (7-16); Aspartate Amino Transferase 41 U/L (0-34); BUN/Creatinine Ratio 15 Ratio (12-20); Bilirubin,Total 1.3 mg/dL (0.3-1.2); Blood Urea Nitrogen 9 mg/dL (9-23); Calcium 8.9 mg/dL (8.3-10.6); Calcium (Corrected) 8.9 mg/dL (8.5-10.1); Carbon Dioxide 29.9 mMol/L (20.0-31.0); Chloride 103 mMol/L (98-107); Creatinine (Component) 0.6 mg/dL (0.6-1.3); Estimated Creatinine Clearance 127.1 mL/min (>60); Globulin 2.7 gm/dL (2.3-3.5); Glucose 105 mg/dL (74-106); Osmolality,Calculated 278 (275-295); Potassium 3.6 mMol/L (3.4-5.1); Sodium 140 mMol/L (136-145); Total Protein 6.9 gm/dL (5.7-8.2); eGFR > 60 See Note
--- NOTE | 2025-01-27 09:36 | PD.EDHA ---
ED Headache RME/HPI General Chief Complaint: Headache Stated Complaint: HEADACHE X5DAYS Time Seen by Provider: 01/27/25 07:41 Arrival date/time: 01/27/25 07:40 54-year-old female presents to the Emergency Department today for complaints of headache patient reports symptoms ongoing x 5 days patient reports pain is worse with movement of her left arm and when she moves her neck [id number] Limitations: no limitations Related Data Previous Rx's ?Medication ?Instructions ?Recorded albuterol sulfate 90 mcg/actuation 2 puff inhalation Q4H PRN 04/20/18 aerosol inhaler (Proventil HFA) shortness of breath or wheezing #8.5 grams aluminum-mag hydroxide-simethicone 10 ml PO Q6H PRN indigestion #355 05/19/19 200 mg-200 mg-20 mg/5 mL oral susp mL (Maalox Advanced) omeprazole 20 mg capsule,delayed 20 mg PO QDAY #30 caps 05/19/19 release hydrocodone 5 mg-acetaminophen 325 1 tab PO BID PRN pain #8 tabs 10/18/22 mg tablet ibuprofen 800 mg tablet 800 mg PO TID PRN pain #30 tabs 10/18/22 cyclobenzaprine 5 mg tablet 5 mg PO Q8H #30 tabs 05/25/23 gabapentin 300 mg capsule 300 mg PO Q8H #30 caps 05/25/23 sucralfate 100 mg/mL oral 10 ml PO TID #200 mL 07/22/24 suspension (Carafate) azithromycin 250 mg tablet See Rx Instructions PO .COMPLEX #6 12/13/24 tabs ibuprofen 800 mg tablet 800 mg PO Q6H PRN pain #10 tabs 12/13/24 promethazine-DM 6.25 mg-15 mg/5 mL 5 ml PO Q6H PRN cough #120 mL 12/13/24 oral syrup doxycycline monohydrate 100 mg 100 mg PO BID #14 caps 12/22/24 capsule cyclobenzaprine 10 mg tablet 10 mg PO TID PRN muscle spasm 10 01/27/25 days #30 tab-caps hydrocodone 5 mg-acetaminophen 325 1 tab PO BID PRN pain #8 tabs 01/27/25 mg tablet ibuprofen 800 mg tablet 800 mg PO TID PRN pain #30 tabs 01/27/25 Allergies Allergy/AdvReac Type Severity Reaction Status Date / Time No Known Allergies Allergy Verified 01/27/25 07:43 Review of Systems Review of Systems Systems Reviewed: All systems reviewed, normal except as documented Constitutional Constitutional: Reports system reviewed and no additional complaints, except as documented, Denies fever(s) and Reports headache(s) Eyes Eyes: Reports system reviewed and no additional complaints, except as documented and Denies blurry vision ENT Ears, Nose, Mouth, and Throat: Reports system reviewed and no additional complaints, except as documented, Denies dizziness, Reports headache(s), Denies nasal congestion and Denies nasal discharge Cardiovascular Cardiovascular: Reports system reviewed and no additional complaints, except as documented, Denies chest pain and Denies dyspnea Respiratory Respiratory: Reports system reviewed and no additional complaints, except as documented, Denies chest congestion, Denies cough and Denies dyspnea Gastrointestinal Gastrointestinal: Reports system reviewed and no additional complaints, except as documented and Denies abdominal pain Integumentary/Breasts Skin/Breast: Reports system reviewed and no additional complaints, except as documented and Denies rash Neurologic Neurologic: Reports system reviewed and no additional complaints, except as documented, Reports as per HPI, Denies dizziness and Reports headache(s) Past Medical History Past Medical History NEUROLOGIC: Negative Neurological Disorders or Seizures CARDIAC: Positive Cardiac Disorders, Hypercholesterolemia and Hypertension; Negative Congestive Heart Failure RESPIRATORY: Positive Asthma and Bronchitis; Negative Chronic Obstructive Pulmonary Disease (COPD) GASTROINTESTINAL: Positive Gastrointestinal Disorders and Obesity GENITOURINARY: Negative Genitourinary Disorders or Renal Disease REPRODUCTIVE: Positive Previous Pregnancies MUSCULOSKELETAL: Negative Musculoskeletal Disorders ENDOCRINE: Positive Endocrine Disorders and Diabetes Mellitus Type 2; Negative Diabetes Mellitus Type 1 HEMATOLOGIC: Negative Blood Disorders, Anemia, Sickle Cell Disease or Clotting Problems OTHER HISTORY: Negative Hospitalization, Autoimmune Disease, Falls, Blood Transfusions or Anesthesia Reactions Family History FAMILY HISTORY: Negative Family Cardiac Disorders Surgical History SURGICAL: Positive Abdominal Surgery and Section Social History SMOKING STATUS: Never smoker SUBSTANCE USE: does not use ED Exam General Limitations: Present no limitations General appearance: Present alert and in no apparent distress Head Head exam: Present atraumatic, normocephalic and normal inspection Eye Eye exam: Present normal appearance, PERRL and EOMI; Absent conjunctival injection ENT ENT exam: Present normal exam, normal oropharynx and mucous membranes moist Neck Neck exam: Present normal inspection, full ROM and trachea midline Chest Chest inspection: Present normal inspection and symmetric chest wall rise Respiratory Respiratory exam: Present normal lung sounds bilaterally; Absent respiratory distress Cardiovascular Cardiovascular exam: Present regular rate, normal rhythm and normal heart sounds Abdominal Exam Abdominal exam: Present soft and normal bowel sounds; Absent distention, tenderness, guarding, rebound or rigidity Extremities Exam Extremities exam: Present normal inspection and full ROM; Absent tenderness Back Exam Back exam: Present normal inspection and full ROM Neurological Exam Neurological exam: Present alert, oriented X3, CN II-XII intact, normal gait and reflexes normal; Absent motor sensory deficit Psychiatric Psychiatric exam: Present normal affect and normal mood Skin Skin exam: Present warm, dry, intact and normal color Course Quality Measures none Orders Category Date Time Status CT head/brain wo con Stat Exams 01/27/25 07:56 Completed CBC Stat Lab 01/27/25 08:05 Completed CMP [Comprehensive Metabolic Panel] Stat Lab 01/27/25 08:05 Completed Vital Signs Vital signs: Vital Signs Temperature 98.2 F 01/27/25 07:59 Pulse Rate 76 01/27/25 07:59 Respiratory Rate 16 01/27/25 07:59 Blood Pressure 153/92 H 01/27/25 07:59 Pulse Oximetry (%) 97 01/27/25 07:59 Oxygen Delivery Method Room Air 01/27/25 07:59 O2 saturation 97% room air within normal limits Headache MDM Narrative MDM Narrative:: 54-year-old female presents to the Emergency Department today for complaints of headache patient reports symptoms ongoing x 5 days patient reports pain is worse with movement of her left arm and when she moves her neck [id number] I suspect based on symptomatology symptoms are consistent with muscle spasm, head pain. Patient has no abnormal neurological findings patient walks with steady gait Patient discharged home in no distress to follow-up with primary care doctor in the next 24 to 48 hours and for any worsening symptoms to return to the ER immediately Patient data External records reviewed:: [facility] previous records Clinical information provided by:: patient Social determinants that could affect healthcare access:: none Patient has the following chronic illnesses:: see history How is presenting disease/condition affected by chronic disease/condition?: uneffected by Evaluation data The following diagnostics were reviewed and interpreted by me:: lab results and radiology exam(s) Lab and/or radiology exams considered but not ordered:: Labs radiology obtained Interpretation Summary: Reviewed by me Medications / Prescriptions Medications or Prescriptions considered but not ordered:: Given Medication administrations:: Given Consultations Consultation(s) initiated? (list below): No Diagnosis Differential diagnosis headache: migraine, tension headache, subarachnoid hemorrhage and headache Most likely diagnosis given after review of the tests above:: Headache Admission Indicated Admission indicated?: not indicated Admission Request Was there a request for admission?: No Disposition Plan Disposition Plan: Discharge Discharge Attestation Discharge Attestation: The patient and all family members were given an opportunity to ask questions and understood the discharge instructions. Discharge instructions specifically effects, indications for sooner follow up or return to the emergency department, and the expected course of current diagnosis. Patient condition: Stable Discharge Plan Plan Patient Disposition: HOME (Self Care) Discharge Disposition comment: stable Prescriptions/Referrals Prescriptions/Med Rec: New cyclobenzaprine 10 mg tablet 10 mg PO TID PRN (Reason: muscle spasm) 10 Days Qty: 30 0RF ibuprofen 800 mg tablet 800 mg PO TID PRN (Reason: pain) Qty: 30 0RF hydrocodone-acetaminophen 5-325 mg tablet 1 tab PO BID MDD 10 PRN (Reason: pain) Qty: 8 0RF No Action albuterol sulfate [Proventil HFA] 90 mcg/actuation HFA aerosol inhaler 2 puff INH Q4H PRN (Reason: shortness of breath or wheezing) Qty: 8.5 0RF alum-mag hydroxide-simeth [Maalox Advanced] 200-200-20 mg/5 mL suspension 10 ml PO Q6H PRN (Reason: indigestion) Qty: 355 0RF omeprazole 20 mg capsule,delayed release(DR/EC) 20 mg PO QDAY Qty: 30 0RF ibuprofen 800 mg tablet 800 mg PO TID PRN (Reason: pain) Qty: 30 0RF hydrocodone-acetaminophen 5-325 mg tablet 1 tab PO BID MDD 10 PRN (Reason: pain) Qty: 8 0RF sucralfate [Carafate] 100 mg/mL suspension 10 ml PO TID Qty: 200 0RF doxycycline monohydrate 100 mg capsule 100 mg PO BID Qty: 14 0RF gabapentin 300 mg capsule 300 mg PO Q8H Qty: 30 0RF cyclobenzaprine 5 mg tablet 5 mg PO Q8H Qty: 30 0RF azithromycin 250 mg tablet See Rx Instructions .ROUTE .COMPLEX Qty: 6 0RF Rx Instructions: For 250 mg dose pack: take 500 mg today (day 1), then 250 mg for 4 days (days 2-5) ibuprofen 800 mg tablet 800 mg PO Q6H PRN (Reason: pain) Qty: 10 0RF promethazine-DM 6.25-15 mg/5 mL syrup 5 ml PO Q6H PRN (Reason: cough) Qty: 120 0RF Referrals: Evan Nunez MD [Primary Care Provider] - 01/28/25 Problem List Clinical Impression: Headache Patient/Caregiver Discharge Instructions Education Materials: Self-Care for Headaches Additional Instructions: Please follow up with your primary care doctor in the next 24-48hrs for any worsening symptoms return here immediately Print Language: Bulgarian Stand Alone Forms: Zaina Award Info., Patient Portal Info Letter PA/ANIL Supervising Physician SANJAY/ANIL Supervising Physician: dr regan
== END 2025-01-27 09:54 | disposition home or self-care (01) ==
PROVIDERS: Nurse Practitioner Primary Care; Emergency Provider Emergency Medicine; PCP Family Medicine
DX: R51.9 Headache, unspecified (principal)
CPT/HCPCS: 36415; 70450; 80053; 85025; 99284

== ENCOUNTER 2025-05-01 10:06 | Emergency (ER) | payer MEDICAID, SELFPAY ==
[2025-05-01 10:08] VITALS: BMI 38.6
--- NOTE | 2025-05-01 10:19 | EKG_ITS ---
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
[2025-05-01 10:27] VITALS: BP 160/95; PULSE 80; RESP 19; TEMP 36.8; O2SAT 97
--- NOTE | 2025-05-01 10:32 | XR_ITS ---
Examination: PA lateral chest 2 views Technique: Upright PA lateral chest 2 views Date and time: May 01, 2025, 1034 hrs. Indications: Chest pain and shortness of breath beginning 2 days ago. Findings: No significant cardiac enlargement Mild accentuation basilar bronchovascular markings. No lobar pneumonia or pulmonary edema Impression: Basilar bronchitis pattern.
--- NOTE | 2025-05-01 10:32 | PD.EDRME ---
Rapid Medical Screening Exam RME Arrival date/time: 05/01/25 10:06 54-year-old female presents to the Emergency Department today for complaints of chest pain and shortness of breath Chief Complaint: Shortness of Breath/Dyspnea Vital signs: Vital Signs Temperature 98.2 F 05/01/25 10:27 Pulse Rate 80 05/01/25 10:27 Respiratory Rate 19 05/01/25 10:27 Blood Pressure 160/95 H 05/01/25 10:27 Pulse Oximetry (%) 97 05/01/25 10:27 Oxygen Delivery Method Room Air 05/01/25 10:27
[2025-05-01 11:14] LABS: Basophils # (Auto) 0.0 Thou/mm3 (0.0-0.2); Basophils % (Auto) 1 % (0-2.5); Eosinophils # (Auto) 0.2 Thou/mm3 (0.0-0.5); Eosinophils % (Auto) 5 % (0-10); Hematocrit 42.8 % (36.0-46.0); Hemoglobin 14.1 g/dL (12.0-16.0); Immature Granulocytes Auto 0.00 Thou/mm3 (0.00-0.00); Lymphocytes # (Auto) 1.4 Thou/mm3 (1.0-4.8); Lymphocytes % (Auto) 30 % (10-50); Mean Corpuscular HGB Conc 32.9 g/dl (31.0-37.0); Mean Corpuscular Hemoglobin 25.1 pg (25.0-35.0); Mean Corpuscular Volume 76 fL (80-100); Monocytes # (Auto) 0.3 Thou/mm3 (0.0-0.8); Monocytes % (Auto) 7 % (0-12); Neutrophils # (Auto) 2.7 Thou/mm3 (1.8-7.7); Neutrophils % (Auto) 58 % (37-80); Nucleated Red Blood Cell # 0.00 Thou/mm3 (0.00-0.00); Nucleated Red Blood Cell % 0 /100 WBC (0); Platelet Count 217 Thou/mm3 (140-440); RDW Standard Deviation 40.5 fL (36.4-46.3); Red Blood Count 5.61 Miln/mm3 (4.00-5.20); White Blood Count 4.7 Thou/mm3 (3.6-11.0)
[2025-05-01 11:26] LABS: INR 1.1 (0.9-1.3); Partial Thromboplastin Time 29.4 Seconds (22.0-36.0); Prothrombin Time 11.3 Seconds (9.0-12.2)
[2025-05-01 11:30] LABS: B-Type Natriuretic Peptide 22 pg/mL (0-100)
[2025-05-01 11:32] LABS: D-Dimer < 250 ng/mL (<600)
[2025-05-01 11:33] LABS: Alanine Aminotransferase 19 U/L (10-49); Albumin, Serum 4.5 gm/dL (3.5-5.0); Albumin/Globulin Ratio 1.6 (1.2-2.2); Alkaline Phosphatase 111 U/L (46-116); Anion Gap 10 (7-16); Aspartate Amino Transferase 25 U/L (0-34); BUN/Creatinine Ratio 10 Ratio (12-20); Bilirubin,Total 1.0 mg/dL (0.3-1.2); Blood Urea Nitrogen 6 mg/dL (9-23); Calcium 9.8 mg/dL (8.3-10.6); Calcium (Corrected) 9.8 mg/dL (8.5-10.1); Carbon Dioxide 27.6 mMol/L (20.0-31.0); Chloride 103 mMol/L (98-107); Creatinine (Component) 0.6 mg/dL (0.6-1.3); Estimated Creatinine Clearance 124.6 mL/min (>60); Globulin 2.8 gm/dL (2.3-3.5); Glucose 101 mg/dL (74-106); Magnesium 2.0 mg/dL (1.6-2.6); Osmolality,Calculated 278 (275-295); Potassium 3.7 mMol/L (3.4-5.1); Sodium 141 mMol/L (136-145); Total Protein 7.3 gm/dL (5.7-8.2); Troponin I < 0.002 ng/mL (0.0-0.045); eGFR > 60 See Note
--- NOTE | 2025-05-01 11:54 | PD.EDSOB ---
ED SOB =RME/HPI General Chief Complaint: Shortness of Breath/Dyspnea Stated Complaint: DIFF BREATHING X 2 DAYS Time Seen by Provider: 05/01/25 11:20 Arrival date/time: 05/01/25 10:06 54-year-old female presents to the Emergency Department today for complaints of chest pain and shortness of breath patient reports dry cough. Patient reports nothing symptoms better or worse quality aching in nature no radiation of symptoms mild Limitations: no limitations RME / HPI RME / HPI Narrative: 05/01/25 10:06 54-year-old female presents to the Emergency Department today for complaints of chest pain and shortness of breath Related Data Previous Rx's ?Medication ?Instructions ?Recorded albuterol sulfate 90 mcg/actuation 2 puff inhalation Q4H PRN 04/20/18 aerosol inhaler (Proventil HFA) shortness of breath or wheezing #8.5 grams aluminum-mag hydroxide-simethicone 10 ml PO Q6H PRN indigestion #355 05/19/19 200 mg-200 mg-20 mg/5 mL oral susp mL (Maalox Advanced) omeprazole 20 mg capsule,delayed 20 mg PO QDAY #30 caps 05/19/19 release hydrocodone 5 mg-acetaminophen 325 1 tab PO BID PRN pain #8 tabs 10/18/22 mg tablet ibuprofen 800 mg tablet 800 mg PO TID PRN pain #30 tabs 10/18/22 cyclobenzaprine 5 mg tablet 5 mg PO Q8H #30 tabs 05/25/23 gabapentin 300 mg capsule 300 mg PO Q8H #30 caps 05/25/23 sucralfate 100 mg/mL oral 10 ml PO TID #200 mL 07/22/24 suspension (Carafate) azithromycin 250 mg tablet See Rx Instructions PO .COMPLEX #6 12/13/24 tabs ibuprofen 800 mg tablet 800 mg PO Q6H PRN pain #10 tabs 12/13/24 promethazine-DM 6.25 mg-15 mg/5 mL 5 ml PO Q6H PRN cough #120 mL 12/13/24 oral syrup doxycycline monohydrate 100 mg 100 mg PO BID #14 caps 12/22/24 capsule hydrocodone 5 mg-acetaminophen 325 1 tab PO BID PRN pain #8 tabs 01/27/25 mg tablet ibuprofen 800 mg tablet 800 mg PO TID PRN pain #30 tabs 01/27/25 Ventolin HFA 90 mcg/actuation 2 puff inhalation Q6H PRN 05/01/25 aerosol inhaler (albuterol sulfate) shortness of breath or wheezing #18 grams benzonatate 100 mg capsule 100 mg PO TID #14 caps 05/01/25 ibuprofen 600 mg tablet 600 mg PO Q6H #30 tabs 05/01/25 prednisone 10 mg tablet 30 mg (3 x 10 mg) PO BID 3 days 05/01/25 #18 tabs Allergies Allergy/AdvReac Type Severity Reaction Status Date / Time No Known Allergies Allergy Verified 05/01/25 10:06 Review of Systems Review of Systems Systems Reviewed: All systems reviewed, normal except as documented Constitutional Constitutional: Reports system reviewed and no additional complaints, except as documented, Denies fever(s) and Denies headache(s) Eyes Eyes: Reports system reviewed and no additional complaints, except as documented and Denies blurry vision ENT Ears, Nose, Mouth, and Throat: Reports system reviewed and no additional complaints, except as documented, Denies headache(s), Denies nasal congestion and Denies nasal discharge Cardiovascular Cardiovascular: Reports system reviewed and no additional complaints, except as documented, Denies chest pain and Reports dyspnea Respiratory Respiratory: Reports system reviewed and no additional complaints, except as documented, Reports chest congestion, Reports cough and Reports dyspnea Gastrointestinal Gastrointestinal: Reports system reviewed and no additional complaints, except as documented and Denies abdominal pain Integumentary/Breasts Skin/Breast: Reports system reviewed and no additional complaints, except as documented and Denies rash Neurologic Neurologic: Reports system reviewed and no additional complaints, except as documented, Reports as per HPI and Denies headache(s) Past Medical History Past Medical History NEUROLOGIC: Negative Neurological Disorders or Seizures CARDIAC: Positive Cardiac Disorders, Hypercholesterolemia and Hypertension; Negative Congestive Heart Failure RESPIRATORY: Positive Asthma and Bronchitis; Negative Chronic Obstructive Pulmonary Disease (COPD) GASTROINTESTINAL: Positive Gastrointestinal Disorders and Obesity GENITOURINARY: Negative Genitourinary Disorders or Renal Disease REPRODUCTIVE: Positive Previous Pregnancies MUSCULOSKELETAL: Negative Musculoskeletal Disorders ENDOCRINE: Positive Endocrine Disorders and Diabetes Mellitus Type 2; Negative Diabetes Mellitus Type 1 HEMATOLOGIC: Negative Blood Disorders, Anemia, Sickle Cell Disease or Clotting Problems OTHER HISTORY: Negative Hospitalization, Autoimmune Disease, Falls, Blood Transfusions or Anesthesia Reactions Family History FAMILY HISTORY: Negative Family Cardiac Disorders Surgical History SURGICAL: Positive Abdominal Surgery and Section Social History SMOKING STATUS: Never smoker SUBSTANCE USE: does not use ED Exam General Limitations: Present no limitations General appearance: Present alert and in no apparent distress Head Head exam: Present atraumatic Eye Eye exam: Present normal appearance, PERRL and EOMI; Absent conjunctival injection ENT ENT exam: Present normal exam, normal oropharynx and mucous membranes moist Neck Neck exam: Present normal inspection, full ROM and trachea midline Chest Chest inspection: Present normal inspection and symmetric chest wall rise Respiratory Respiratory exam: Present normal lung sounds bilaterally Cardiovascular Cardiovascular exam: Present regular rate, normal rhythm and normal heart sounds Abdominal Exam Abdominal exam: Present soft and normal bowel sounds; Absent distention, tenderness, guarding, rebound or rigidity Extremities Exam Extremities exam: Present normal inspection and full ROM Back Exam Back exam: Present normal inspection and full ROM Neurological Exam Neurological exam: Present alert, oriented X3 and CN II-XII intact Psychiatric Psychiatric exam: Present normal affect and normal mood Skin Skin exam: Present warm, dry, intact and normal color Course Quality Measures none Orders Category Date Time Status EKG (ED ONLY) *Do not use* NOW Care 05/01/25 10:19 Completed EKG (ED Only) Stat Exams 05/01/25 10:19 Draft XR chest 2V Stat Exams 05/01/25 10:32 Completed B-Type Natriuretic Peptide Stat Lab 05/01/25 10:48 Completed CBC Stat Lab 05/01/25 10:48 Completed Comprehensive Metabolic Panel Stat Lab 05/01/25 10:48 Completed D-Dimer Stat Lab 05/01/25 10:48 Completed Magnesium Stat Lab 05/01/25 10:48 Completed Partial Thromboplastin Time Stat Lab 05/01/25 10:48 Completed Prothrombin Time with INR Stat Lab 05/01/25 10:48 Completed Troponin I Stat Lab 05/01/25 10:48 Completed Vital Signs Vital signs: Vital Signs Temperature 98.2 F 05/01/25 10:27 Pulse Rate 80 05/01/25 10:27 Respiratory Rate 19 05/01/25 10:27 Blood Pressure 160/95 H 05/01/25 10:27 Pulse Oximetry (%) 97 05/01/25 10:27 Oxygen Delivery Method Room Air 05/01/25 10:27 O2 saturation 97% on room air within normal limits PROCEDURES: EKG Interpretation #1: Date of EK/20/25 Time of EK:23 Rate: 78 Interpretation: Interpreted by me EKG Impression: Normal sinus rhythm, No acute ST-T changes, No ectopy, No ischemic changes, Normal QRS, Normal intervals and Normal axis Shortness of Breath / Dyspnea MDM Narrative [facility] Narrative:: 54-year-old female presents to the Emergency Department today for complaints of chest pain and shortness of breath patient reports dry cough. Patient reports nothing symptoms better or worse quality aching in nature no radiation of symptoms mild On exam patient well-appearing does not appear ill or toxic no acute distress Lab work imaging and EKG obtained no acute emergent findings noted Troponin is negative chest x-ray no pneumonic infiltrates patient's x-ray consistent with bronchitis EKG no acute emergent findings Patient discharged home in no distress to follow-up with primary care doctor in the next 24 to 48 hours and for any worsening symptoms to return to the ER immediately Patient data External records reviewed:: [facility] previous records Clinical information provided by:: patient Social determinants that could affect healthcare access:: none Patient has the following chronic illnesses:: History How is presenting disease/condition affected by chronic disease/condition?: uneffected by Evaluation data The following diagnostics were reviewed and interpreted by me:: lab results, radiology exam(s) and EKG tracing(s) Lab and/or radiology exams considered but not ordered:: Labs, radiology, EKG obtained Interpretation Summary: Reviewed by me Medications / Prescriptions Medications or Prescriptions considered but not ordered:: Given Medication administrations:: Given Consultations Consultation(s) initiated? (list below): No Diagnosis Shortness of Breath Differential Diagnosis: acute exacerbation of chronic obstructive airways disease, community acquired pneumonia and asthma with exacerbation Most likely diagnosis given after review of the tests above:: Bronchitis Admission Indicated Admission indicated?: not indicated Admission Request Was there a request for admission?: No Disposition Plan Disposition Plan: Discharge Discharge Attestation Discharge Attestation: The patient and all family members were given an opportunity to ask questions and understood the discharge instructions. Discharge instructions specifically effects, indications for sooner follow up or return to the emergency department, and the expected course of current diagnosis. Patient condition: Stable Discharge Plan Plan Patient Disposition: HOME (Self Care) Discharge Disposition comment: Stable Prescriptions/Referrals Prescriptions/Med Rec: New prednisone 10 mg tablet 30 mg PO BID 3 Days Qty: 18 0RF benzonatate 100 mg capsule 100 mg PO TID Qty: 14 0RF ibuprofen 600 mg tablet 600 mg PO Q6H Qty: 30 0RF albuterol sulfate [Ventolin HFA] 90 mcg/actuation HFA aerosol inhaler 2 puff inhalation Q6H PRN (Reason: shortness of breath or wheezing) Qty: 18 0RF No Action albuterol sulfate [Proventil HFA] 90 mcg/actuation HFA aerosol inhaler 2 puff INH Q4H PRN (Reason: shortness of breath or wheezing) Qty: 8.5 0RF alum-mag hydroxide-simeth [Maalox Advanced] 200-200-20 mg/5 mL suspension 10 ml PO Q6H PRN (Reason: indigestion) Qty: 355 0RF omeprazole 20 mg capsule,delayed release(DR/EC) 20 mg PO QDAY Qty: 30 0RF ibuprofen 800 mg tablet 800 mg PO TID PRN (Reason: pain) Qty: 30 0RF hydrocodone-acetaminophen 5-325 mg tablet 1 tab PO BID MDD 10 PRN (Reason: pain) Qty: 8 0RF sucralfate [Carafate] 100 mg/mL suspension 10 ml PO TID Qty: 200 0RF doxycycline monohydrate 100 mg capsule 100 mg PO BID Qty: 14 0RF gabapentin 300 mg capsule 300 mg PO Q8H Qty: 30 0RF cyclobenzaprine 5 mg tablet 5 mg PO Q8H Qty: 30 0RF azithromycin 250 mg tablet See Rx Instructions .ROUTE .COMPLEX Qty: 6 0RF Rx Instructions: For 250 mg dose pack: take 500 mg today (day 1), then 250 mg for 4 days (days 2-5) ibuprofen 800 mg tablet 800 mg PO Q6H PRN (Reason: pain) Qty: 10 0RF promethazine-DM 6.25-15 mg/5 mL syrup 5 ml PO Q6H PRN (Reason: cough) Qty: 120 0RF ibuprofen 800 mg tablet 800 mg PO TID PRN (Reason: pain) Qty: 30 0RF hydrocodone-acetaminophen 5-325 mg tablet 1 tab PO BID MDD 10 PRN (Reason: pain) Qty: 8 0RF Referrals: Adriel Dobson [Primary Care Provider] - In 1 week Problem List Clinical Impression: Bronchitis Patient/Caregiver Discharge Instructions Education Materials: ED Bronchitis, No Antibiotic (Adult) Additional Instructions: Please follow up with your primary care doctor in the next 24-48hrs for any worsening symptoms return here immediately Print Language: Thai Stand Alone Forms: [employer] Award Info., Patient Portal Info Letter PA/PROCESSING SUPERVISOR Supervising Physician PA/PROCESSING SUPERVISOR Supervising Physician: Dr. Bello
== END 2025-05-01 12:32 | disposition home or self-care (01) ==
PROVIDERS: Nurse Practitioner Primary Care; Emergency Provider Family Medicine; PCP Physician Assistant
DX: J45.909 Unspecified asthma, uncomplicated (principal); E78.00 Pure hypercholesterolemia, unspecified; I10 Essential (primary) hypertension; E11.9 Type 2 diabetes mellitus without complications
CPT/HCPCS: 36415; 71046; 80053; 83735; 83880; 84484; 85025; 85379; 85610; 85730; 93005; 99283